=== PATIENT | male | born 1965 | race Caucasian/White ===

== ENCOUNTER 2017-07-20 08:28 | Day surgery (SDC) | payer OTHER ==
[~2017-07-20] VITALS: Ht 177.8 cm; Wt 105.2 kg
[~2017-07-20 08:28] MED LIST: ATOR20 PO; CYCL10 PO; DOXE10 PO; HYDACE10B PO; HYDMOR2 PO; HYDROCODONE/ACET; IBUP600 PO; LISI5 PO; OXYC15ER PO; Prilosec Otc20 MG PO; RXHYDMOR2 PO
== END 2017-07-20 10:32 | disposition home or self-care (01) ==
LOC: ORSCMMR 08:28
PROVIDERS: Internal Medicine Gastroenterology
PROC: 0DJD8ZZ Inspection of Lower Intestinal Tract, Via Natural or Artificial Opening Endoscopic (ICD-10-PCS; principal; 2017-07-20 09:30)
DX: K62.5 Hemorrhage of anus and rectum (principal); K64.8 Other hemorrhoids; I10 Essential (primary) hypertension; E78.00 Pure hypercholesterolemia, unspecified; K21.9 Gastro-esophageal reflux disease without esophagitis; Z79.899 Other long term (current) drug therapy; K57.30 Diverticulosis of large intestine without perforation or abscess without bleeding
CPT/HCPCS: J7120